=== PATIENT | female | born 1990 | race Caucasian/White ===

== ENCOUNTER 2019-03-21 12:03 | Emergency (ER) | payer BC, OTHER ==
[~2019-03-21] VITALS: Ht 154.9 cm; Wt 75.9 kg
[2019-03-21 12:32] VITALS: BP 123/83; PULSE 81; RESP 17; Ht 154.9 cm; Wt 75.9 kg
[2019-03-21] MEDS ORDERED: METOCLOPRAMIDE 10 MG TAB PO ONE (14:00)
== END 2019-03-21 16:28 | disposition left against medical advice (07) ==
LOC: FTE 12:03
DX: O20.9 Hemorrhage in early pregnancy, unspecified (principal); Z3A.11 11 weeks gestation of pregnancy
CPT/HCPCS: 36415; 80053; 81001; 84702; 85025; 86900; 86901; 99283